=== PATIENT | female | born 1970 | race Caucasian/White ===

== ENCOUNTER 2016-10-25 08:02 | Day surgery (SDC) | payer OTHER ==
[~2016-10-25 08:02] MED LIST: ACETAMINOPHEN 1000MG/100 ML PREMIX IV ONE
[2016-10-25] MEDS ORDERED: ACETAMINOPHEN/CODEINE TABLET PO ONE (13:33)
[2016-10-25] MEDS ORDERED: LIDOCAINE 2% MDV (20MG/ML) 20ML VIAL IV ONE (13:49)
[2016-10-25] MEDS ORDERED: PROPOFOL 10 MG/ML VIAL IV ONE (13:49)
[2016-10-25] MEDS ORDERED: MIDAZOLAM HCL 2MG/2ML VIAL IV ONE (13:49)
[2016-10-25] MEDS ORDERED: MEPERIDINE 50 MG/1 ML VIAL IVP ONE (13:49)
[2016-10-25] MEDS ORDERED: SEVOFLURANE 250 ML INH ONE (13:49)
[2016-10-25] MEDS ORDERED: KETOROLAC 30 MG/ML VIAL IVP ONE (13:49)
--- NOTE | 2016-10-25 16:25 | Operative Note ---
DATE OF SURGERY: 10/25/16 PREOPERATIVE DIAGNOSIS: CARPAL TUNNEL SYNDROME OF THE LEFT WRIST. POSTOPERATIVE DIAGNOSIS: CARPAL TUNNEL SYNDROME OF THE LEFT WRIST. OPERATIVE PROCEDURE: DECOMPRESSION LEFT MEDIAN NERVE OF THE WRIST USING 3.5 LOOP MAGNIFICATION. SURGEON: TOÑO BRIGGS D.O. REFERRING PHYSICIAN: JERRY OTERO D.O. DESCRIPTION: This 45-year-old female was taken to the Operating Room and placed in the supine position on the operating room table. General anesthesia was induced and the left upper extremity was elevated. It was prepped with Hibiclens and draped in the usual sterile fashion. It was exsanguinated and the tourniquet inflated to 250 mmHg. A palmar incision was utilized from the level of the base of the webspace of the thumb to the flexor crease of the wrist and dissection was carried down through the skin and subcutaneous tissue. Hemostasis was obtained with the electrocautery. The palmar fascia was divided inline with the skin incision to expose the flexor retinaculum, which was punctured and split to its proximal margin. Then with the contents of the carpal tunnel under direct vision, the transverse carpal ligament was transected along its ulnar border and the radial flap was raised to expose the entire median nerve under the transverse carpal ligament. The nerve itself appeared to be grossly normal. The recurrent motor branch of the median nerve was in its normal anatomic location and appeared to be normal. The wound was then irrigated and hemostasis obtained with the electrocautery after the tourniquet had been released and the wound again irrigated and closed with interrupted 6-0 nylon suture. Sterile dressings were applied with the wrist in slight dorsal flexion and the thumb in an adducted position and then the patient was taken to the Recovery Room in satisfactory condition. Toño Briggs D.O. Date & Time cc: Jerry Otero D.O. JOB NUMBER: [id number] MTDD
== END 2016-10-25 10:55 | disposition home or self-care (01) ==
LOC: SUR 08:02
PROVIDERS: ATTEND Orthopaedic Surgery
DX: G56.02 Carpal tunnel syndrome, left upper limb (principal)
CPT/HCPCS: 64721; 01810; 81025; J1885